=== PATIENT | female | born 1945 | race Caucasian/White ===

== ENCOUNTER → 2018-01-16 11:53 | Outpatient (CLI) | payer MEDICARE, OTHER, SELFPAY ==
[2018-01-16 11:55] LABS: Bacteria 0 SEEN /hpf (None Seen); Mucous, Urine 0 SEEN /hpf (<or=2+); Red Blood Cells-Urine 0 SEEN /hpf (0-5)
[2018-01-16 12:06] LABS: Color, Urine Yellow (Yellow); Glucose, Dipstick Normal (Normal); Ketone-Dipstick Negative (Negative); Leukocyte Esterase-Dipstick 25 /ul (Negative); Nitrite-Dipstick Negative (Negative); Occult Blood-Urine 10 /ul (Negative); Protein-Dipstick Negative (Negative); Specific Gravity, Urine 1.005 (1.002-1.030); Urine Bilirubin Dipstick Negative (Negative); Urine Clarity Clear (Clear); Urine Urobilinogen Normal (Normal)
[2018-01-16 12:15] LABS: Squamous Epithelial Cells - UA 0-5 SEEN /hpf (5-10); White Blood Cells 0-5 SEEN /hpf (0-5)
== END ==
PROVIDERS: Visit Provider Internal Medicine
DX: R31.9 Hematuria, unspecified (principal)
CPT/HCPCS: 81001

== ENCOUNTER → 2018-01-19 14:27 | Outpatient (CLI) | payer MEDICARE, OTHER, SELFPAY | PROVIDERS: Family Provider Family Medicine; PCP Family Medicine; Visit Provider Internal Medicine | DX: K64.9 Unspecified hemorrhoids (principal) | CPT/HCPCS: 82274 ==

== ENCOUNTER → 2018-01-25 16:02 | Outpatient (CLI) | payer MEDICARE, OTHER, SELFPAY ==
--- NOTE | 2018-01-25 | EMB_PTH ---
PATIENT: MARIAM HESS LOC: [facility] U#:[id number] AGE/SX: 79/F ROOM: RE01/25/[address]: Dr. Eriberto Burks MD : 1945 BED: DIS: SPEC #: [id number] RECD: 01/25/18 15:50 STATUS: DARWIN HAKEEM #: [id number] DEB: 01/25/18 00:[address]: Eriberto Burks DEPT: SURGICAL PATHOLOGY RECD BY: Deshaun Mallory ENTERED: 01/26/18 09:31 SP TYPE: ENDOM BX/C LAI DR: Dr. Paulo High, DO Tissues: Endometrium, NOS Procedures: Surgery Specimen Level IV HEADER OPERATION: Endometrial biopsy PRE-OP DIAGNOSIS: Postmenopausal bleeding TISSUE SUBMITTED: Endometrial biopsy MICROSCOPIC DIAGNOSIS Endometrial biopsy: Endometrial adenocarcinoma, endometrioid type, FIGO grade 2. SJ:belkis 01/27/18 MICROSCOPIC DESCRIPTION Slides are reviewed. GROSS DESCRIPTION Received in fixative is one container labeled with the patient's name and designated EM biopsy. The specimen consists of multiple fragments of hemorrhagic soft tissue that in aggregate measure 3 x 2.5 x 0.3 cm. The specimen is totally submitted in one cassette. / SJ:belkis 01/26/18 TC:0 CPT: 53679
[2018-01-31 15:20] LABS: HPV Reflexed? NOT INDICATED
== END ==
PROVIDERS: Family Provider Family Medicine; PCP Family Medicine; Visit Provider Obstetrics & Gynecology
DX: Z12.4 Encounter for screening for malignant neoplasm of cervix (principal); N95.0 Postmenopausal bleeding
CPT/HCPCS: 88175; 88305; G0145

== ENCOUNTER → 2018-06-30 11:46 | Outpatient (CLI) | payer MEDICARE, OTHER, SELFPAY ==
[2018-06-30 08:32] VITALS: BMI 36.8
--- NOTE | 2018-06-30 11:53 | EKG12_ITS ---
Test Reason : PRE-OP Blood Pressure : / mmHG Vent. Rate : 078 BPM Atrial Rate : 078 BPM P-R Int : 150 ms QRS Dur : 092 ms QT Int : 386 ms P-R-T Axes : 042 -27 017 degrees QTc Int : 440 ms Normal sinus rhythm Normal ECG Confirmed by ANA LAFLEUR, GABRIEL ([id number]), technical writer and editor VONDA CORBETT ([id number]) on 07/04/2018 8:45:30 AM Referred By: Ray Alegre Confirmed By:GABREIL PEREZ MD
[2018-06-30 12:41] LABS: Absolute Lymphocyte Count 2.38 X10^3/ul (0.83-4.51); Absolute Neutrophil Count 4.9 X10^3/uL (2.0-7.7); Basophil# 0.05 X10^3/uL; Basophil% 0.6 % (0-1); Eosinophil# 0.19 X10^3/uL; Eosinophils% 2.3 % (0-5); Hematocrit 43.6 % (37-47); Lymphocyte # 2.38 X10^3/ul (4.0); Lymphocyte % 29.3 % (19-41); Mean Corp Hgb Conc 32.1 g/gl (32-36); Mean Corpuscular Hgb 28.1 pg (27.0-32.0); Mean Corpuscular Volume 87.4 fL (81-99); Mean Platelet Vol. 9.5 fl (6.2-12.0); Monocyte# 0.55 X10^3/uL; Monocyte% 6.8 % (0-10); Neutrophil % 60.5 % (47-70); Platelet Count 345 K/mm3 (150-450); RBC Distribution Width CV 14.8 % (11.6-14.6); Red Blood Count 4.99 M/mm3 (4.2-5.4); White Blood Count 8.1 K/mm3 (4.4-11.0)
[2018-06-30 12:44] LABS: POSITIVE COUNT NO; POSITIVE DIFFERENTIAL NO; POSITIVE MORPHOLOGY NO
[2018-06-30 13:01] LABS: AST(SGOT) 9 U/L (15-37); Alanine Aminotransfer ALT/SGPT 15 U/L (13-56); Albumin, Serum 3.8 g/dL (3.2-5.0); Alkaline Phosphatase 30 U/L (45-117); Anion Gap 11 (5-15); BUN 16 mg/dL (7-18); Calcium,Total 8.9 mg/dL (8.5-10.1); Chloride 103 mmol/L (98-107); Creatinine, Serum 0.84 mg/dL (0.55-1.02); EST Glomerular Filtration Rate 70 mL/min (>60); Est Glom Filt Rate - Afr Amer 85 mL/min (>60); Globulin 3.9 g/dL (2.2-4.2); Glucose 87 mg/dL (74-106); Potassium 4.2 mmol/L (3.5-5.1); Protein, Total 7.7 g/dL (6.4-8.2); Sodium Level 138 mmol/L (136-145); Thyroid Stim Hormone (TSH) 1.86 uIU/mL (0.358-3.74)
== END ==
PROVIDERS: Family Provider Family Medicine; PCP Family Medicine; Referring Provider Nurse Practitioner Family; Visit Provider Nurse Practitioner Family
DX: Z01.818 Encounter for other preprocedural examination (principal); Z85.42 Personal history of malignant neoplasm of other parts of uterus; F41.9 Anxiety disorder, unspecified
CPT/HCPCS: 36415; 80053; 84443; 85025; 93005

== ENCOUNTER → 2019-11-13 10:48 | Outpatient (CLI) | payer MEDICARE, OTHER, SELFPAY ==
[2019-11-01 09:18] VITALS: BMI 37.5
[2019-11-13 11:31] LABS: ALB/GLOB Ratio 0.9 RATIO (0.9-2.4); AST(SGOT) 14 U/L (15-37); Alanine Aminotransfer ALT/SGPT 15 U/L (13-56); Albumin, Serum 3.7 g/dL (3.2-5.0); Alkaline Phosphatase 27 U/L (45-117); Anion Gap 7 (5-15); BUN 14 mg/dL (7-18); BUN/Creat Ratio 18.4 RATIO (10-20); Calcium,Total 9.2 mg/dL (8.5-10.1); Chloride 107 mmol/L (98-107); Cholesterol 183 mg/dL (200); Creatinine, Serum 0.76 mg/dL (0.55-1.02); EST Glomerular Filtration Rate 79 mL/min (>60); Est Glom Filt Rate - Afr Amer 96 mL/min (>60); Globulin 3.9 g/dL (2.2-4.2); Glucose 85 mg/dL (74-106); High Density Lipoprotein 48 mg/dL; Potassium 3.9 mmol/L (3.5-5.1); Protein, Total 7.6 g/dL (6.4-8.2); Sodium Level 141 mmol/L (136-145); Triglycerides 133 mg/dL; Very Low Density Lipoprotein 27 mg/dL (5-40)
== END ==
PROVIDERS: PCP Family Medicine; Referring Provider Family Medicine; Visit Provider Family Medicine
DX: E78.5 Hyperlipidemia, unspecified (principal)
CPT/HCPCS: 80053; 80061

== ENCOUNTER → 2021-01-06 09:59 | Outpatient (CLI) | payer MEDICARE, OTHER, SELFPAY ==
[2021-01-06 09:39] VITALS: BMI 37.5
[2021-01-06 12:43] LABS: AST(SGOT) 14 U/L (15-37); Alanine Aminotransfer ALT/SGPT 18 U/L (13-56); Albumin, Serum 3.7 g/dL (3.2-5.0); Alkaline Phosphatase 27 U/L (45-117); Anion Gap 5 (5-15); BUN 14 mg/dL (7-18); BUN/Creat Ratio 17.4 RATIO (10-20); Calcium,Total 9.1 mg/dL (8.5-10.1); Chloride 105 mmol/L (98-107); EST Glomerular Filtration Rate 74 mL/min (>60); Est Glom Filt Rate - Afr Amer 89 mL/min (>60); Globulin 3.8 g/dL (2.2-4.2); Glucose 101 mg/dL (74-106); Potassium 4.1 mmol/L (3.5-5.1); Protein, Total 7.5 g/dL (6.4-8.2); Sodium Level 139 mmol/L (136-145)
== END ==
PROVIDERS: PCP Family Medicine; Referring Provider Family Medicine; Visit Provider Family Medicine
DX: R35.0 Frequency of micturition (principal)
CPT/HCPCS: 36415; 80053

== ENCOUNTER 2021-08-27 11:42 | Emergency (ER) | payer MEDICARE, OTHER, SELFPAY ==
[2021-08-27 11:43] VITALS: BP 161/91; PULSE 96; RESP 18; TEMP 36.1; O2SAT 96; BMI 40.1
--- NOTE | 2021-08-27 12:01 | RAD_ITS ---
STUDY: X-RAY - LEFT SHOULDER REASON FOR EXAM: Female, 76 years old. Pain following a fall. TECHNIQUE: 2 view(s) of the shoulder. COMPARISON: None. FINDINGS: There is mild degenerative arthrosis of the glenohumeral articulation. There is hypertrophic osteoarthrosis of the acromioclavicular joint with inferior osseous spur formation. Normal acromion. Nondisplaced transverse fracture of the surgical neck of the proximal left humerus with extension into the greater tuberosity. Questionable fracture of the scapula at the base of the glenoid. Soft tissue swelling. Normal visualized pulmonary apex. RAD/Shoulder min 2 Views IMPRESSION: Nondisplaced transverse fracture of the surgical neck of the proximal left humerus with extension to the greater tuberosity. Findings suggestive of a subglenoid fracture of the scapula. Electronically Signed: Cosmo Austin MD at 12:24 EST ,
[2021-08-27 13:03] VITALS: BP 150/84; PULSE 95; RESP 16; O2SAT 99
[2021-08-27] MEDS: HYDROcodone Bitartrate/Apap 5/325 Tablet PO (13:07)
--- NOTE | 2021-08-27 15:55 | EX.ED.UPPERE ---
HPI History of Present Illness Chief Complaint: Upper Extremity Injury Narrative Narrative: 76-year-old female presenting with left shoulder pain after mechanical fall. She states she was going down a handicap ramp which had a bump at the end of it and she tripped falling onto her left shoulder. She denies head injury or LOC. She has pain with movement of the left shoulder. She denies left elbow or wrist pain. She is not on anticoagulation. PFSH PFS Medical History Acute hemorrhoid Anxiety Cataracts, bilateral History of breast cancer History of seizures Home Medications buspirone 15 mg tablet 15 mg PO BID #60 tab 07/14/21 [Rx Last Taken Unknown] hydrocodone-acetaminophen 1 tab PO Q6H PRN 3 Days #12 tab 08/27/21 [Rx Last Taken Unknown] Allergy/AdvReac Type Severity Reaction Status Date / Time aspirin Allergy Intermediate Hives Verified 08/27/21 11:48 amitriptyline [From Elavil] AdvReac Severe Other Verified 08/27/21 11:48 codeine AdvReac Severe other Verified 08/27/21 11:48 tetracycline AdvReac Severe other Verified 08/27/21 11:48 diazepam [From Valium] AdvReac Unknown Headache Verified 08/27/21 11:48 Family History Mother Asthma Father Kidney disease Grandfather Myocardial infarction, Onset Age: 59 Surgical History H/O total hysterectomy H/O total mastectomy of left breast History of appendectomy history of bladder tack surgery History of brain surgery History of cataract surgery History of cholecystectomy History of tonsillectomy Social History Smoking Status: Former smoker how long ago did patient quit smokin alcohol intake: never substance use type: does not use what type of physical activity do you participate in: none ROS ROS ED Constitutional Constitutional ED: Denies chills or fever(s) Eyes Eyes: Denies blurry vision or diplopia ENT ENT ED: Denies rhinorrhea or sore throat Cardiovascular Cardiovascular: Denies chest pain or palpitations Respiratory/Chest Respiratory/Chest: Denies cough or dyspnea Gastrointestinal Gastrointestinal: Denies abdominal pain, nausea or vomiting Genitourinary Genitourinary ED: Denies dysuria or hematuria Musculoskeletal Musculoskeletal: Reports other Details: Left shoulder pain ; Denies neck pain Integumentary Denies abscess or rash Neurologic Neurologic: Denies headache(s) or weakness Psychiatric Psychiatric: Denies anxiety or depression EXAM Physical Exam Const Vital Signs: 08/27/21 11:43 08/27/21 13:03 Temperature 97 F L Temperature Source Temporal Pulse Rate 96 95 Respiratory Rate 18 16 Blood Pressure 161/91 H 150/84 H Blood Pressure Mean 114 106 Pulse Ox 96 99 Oxygen Delivery Method Room Air Room Air Positive well nourished General Appearance ED: NAD HEENT normocephalic and atraumatic Eyes PERRL and EOMs intact bilaterally Resp normal respiratory effort and clear to auscultation bilaterally Cardio regular rate and regular rhythm Extremity Extremity Narrative: Tenderness palpation over the left shoulder girdle. No obvious deformity. There are some bruising and skin intact throughout the left upper extremity. Neuro oriented x3 Sensorium / Orientation: alert Psych mental status grossly normal Skin Trauma: no lacerations or abrasions MDM MDM MDM Narrative Medical decision making narrative: Patient with mechanical fall and pain to the left shoulder. Patient was given hydrocodone as she has tolerated this in the past. X-ray obtained of the left shoulder shows nondisplaced fracture of the surgical neck of the proximal humerus on my interpretation and there does appear to be some extension to the greater tuberosity. Patient placed in a sling and swath. She is given prescription for pain medication for home. She will be given follow-up with orthopedics. She is given return precautions. Impression: 1. Left shoulder fracture Radiography Diagnostic Testing: Clinical Impression(s) from Imaging Studies Shoulder X-Ray 08/27/21 12:01 IMPRESSION: Nondisplaced transverse fracture of the surgical neck of the proximal left humerus with extension to the greater tuberosity. Findings suggestive of a subglenoid fracture of the scapula. Electronically Signed: Cosmo Austin MD at 12:24 EST , Discharge Plan Triage Chief Complaint: Upper Extremity Injury ED Provider: Erwin Pedersen Dx/Rx/DC Orders Instructions: ED Fracture, Shoulder Prescriptions: New hydrocodone-acetaminophen 5-325 mg tablet 1 tab PO Q6H PRN (Reason: pain) 3 Days Qty: 12 RF: 0 No Action buspirone 15 mg tablet 15 mg PO BID Qty: 60 RF: 5 Primary Care Provider: Paulo High Referrals: Paulo High, [Primary Care Provider] - Bennett Staples MD [STAFF PHYSICIAN] - As soon as possible Disposition Disposition: Home, Self Care Discharge Date/Time: 08/27/21 13:13
== END 2021-08-27 13:13 | disposition home or self-care (01) ==
PROVIDERS: Emergency Provider Student in an Organized Health Care Education/Training Program; PCP Family Medicine; Visit Provider Student in an Organized Health Care Education/Training Program
DX: S42.92XA Fracture of left shoulder girdle, part unspecified, initial encounter for closed fracture (principal); S42.215A Unspecified nondisplaced fracture of surgical neck of left humerus, initial encounter for closed fracture; Z87.891 Personal history of nicotine dependence; W10.2XXA Fall (on)(from) incline, initial encounter; Z85.3 Personal history of malignant neoplasm of breast; Z23 Encounter for immunization
CPT/HCPCS: 73030; 90471; 99285

== ENCOUNTER → 2022-03-11 | Outpatient (CLI) | payer MEDICARE, OTHER, SELFPAY ==
--- NOTE | 2022-03-11 09:55 | BI_ITS ---
MAMMOGRAPHY - UNILATERAL SCREENING: RIGHT BREAST REASON FOR EXAM: Female, 76 years old. Routine annual screening examination (unilateral). PERTINENT HISTORY: Personal history of breast cancer. Prior left mastectomy and chemotherapy. TECHNIQUE: Digital unilateral breast shine (3D mammographic acquisition) in the CC and MLO projections. 2-D mediolateral oblique (MLO) and craniocaudad (CC) views of both breasts were obtained. CAD: Full Field Digital Mammography with Computer Added Detection was performed. COMPARISON: Comparison is made with prior outside study dated 01/23/2021. FINDINGS: Breast Composition: There are scattered areas of fibroglandular density. There are no dominant masses or suspicious calcifications. Stable right axillary lymph node. No other significant abnormalities are identified. There has been no significant change since the prior study. BI/SCREEN MAMM (CAD) W/SHINE UNI R IMPRESSION: Stable unilateral screening mammogram. Yearly follow-up mammogram recommended. (A) ASSESSMENT CATEGORY: BIRADS Category 2: Benign. A letter regarding these results will be sent to the patient by the facility within 30 days. Approximately 10% of breast cancers are not detected by mammography. A normal mammogram should not delay biopsy of a clinically suspicious abnormality. [id number] Electronically Signed: Cosmo Austin MD at 10:55 EDT ,
== END | disposition home or self-care (01) ==
LOC: OPBI 09:54
PROVIDERS: PCP Family Medicine; Referring Provider Nurse Practitioner Family; Visit Provider Nurse Practitioner Family
DX: Z12.31 Encounter for screening mammogram for malignant neoplasm of breast (principal); Z90.12 Acquired absence of left breast and nipple; Z92.21 Personal history of antineoplastic chemotherapy
CPT/HCPCS: 77063; 77067

== ENCOUNTER → 2022-07-29 | Outpatient (CLI) | payer MEDICARE, SELFPAY ==
[2022-07-29 12:23] LABS: Absolute Lymphocyte Count 1.72 X10^3/uL (0.83-4.51); Absolute Neutrophil Count 4.3 X10^3/uL (2.0-7.7); Basophil# 0.07 X10^3/uL; Eosinophil# 0.13 X10^3/uL; Eosinophils% 1.9 % (0-5); Hematocrit 43.1 % (37-47); Hemoglobin 13.5 g/dL (12.0-15.0); Lymphocyte # 1.72 X10^3/ul (0.83-4.51); Lymphocyte % 25.3 % (19-41); Mean Corp Hgb Conc 31.3 g/dL (32-36); Mean Corpuscular Hgb 27.8 pg (27.0-32.0); Mean Corpuscular Volume 88.9 fL (81-99); Mean Platelet Vol. 10.6 fl (6.2-12.0); Monocyte# 0.54 X10^3/uL; NRBC Flagged by Analyzer 0 % (0-5); Neutrophil # 4.27 X10^3/uL (2.7-7.7); Neutrophil % 62.9 % (47-70); Platelet Count 338 K/mm3 (150-450); RBC Distribution Width CV 14.9 % (11.6-14.6); RBC Distribution Width SD 49.1 fl (35.1-43.9); Red Blood Count 4.85 M/mm3 (4.2-5.4); White Blood Count 6.8 K/mm3 (4.4-11.0)
[2022-07-29 13:33] LABS: AST(SGOT) 10 U/L (15-37); Alanine Aminotransfer ALT/SGPT 12 U/L (13-56); Albumin, Serum 3.6 g/dL (3.2-5.0); Alkaline Phosphatase 29 U/L (45-117); Anion Gap 8 (5-15); BUN 14 mg/dL (7-18); BUN/Creat Ratio 18.6 RATIO (10-20); Calcium,Total 9.1 mg/dL (8.5-10.1); Chloride 109 mmol/L (98-107); Creatinine, Serum 0.75 mg/dL (0.55-1.02); EST Glomerular Filtration Rate 79 mL/min (>60); Est Glom Filt Rate - Afr Amer 96 mL/min (>60); Globulin 3.7 g/dL (2.2-4.2); Glucose 101 mg/dL (74-106); Potassium 4.1 mmol/L (3.5-5.1); Protein, Total 7.3 g/dL (6.4-8.2); Sodium Level 142 mmol/L (136-145); Thyroid Stim Hormone (TSH) 2.13 uIU/mL (0.358-3.74)
== END | disposition home or self-care (01) ==
PROVIDERS: PCP Family Medicine; Referring Provider Family Medicine; Visit Provider Family Medicine
DX: R58 Hemorrhage, not elsewhere classified (principal); Z85.42 Personal history of malignant neoplasm of other parts of uterus; F41.9 Anxiety disorder, unspecified
CPT/HCPCS: 36415; 80053; 84443; 85025

== ENCOUNTER → 2023-04-13 | Outpatient (CLI) | payer MEDICARE, SELFPAY ==
--- NOTE | 2023-04-13 12:35 | BI_ITS ---
MAMMOGRAPHY - UNILATERAL SCREENING: RIGHT BREAST REASON FOR EXAM: Female, 77 years old. Routine annual screening examination (unilateral). PERTINENT HISTORY: Personal history of breast cancer. Prior left mastectomy and chemotherapy. TECHNIQUE: Digital unilateral breast shine (3D mammographic acquisition) in the CC and MLO projections. 2-D mediolateral oblique (MLO) and craniocaudad (CC) views of both breasts were obtained. CAD: Full Field Digital Mammography with Computer Added Detection was performed. COMPARISON: Comparison is made with prior study dated March 11, 2022. FINDINGS: Breast Composition: There are scattered areas of fibroglandular density. There is a faintly seen 8 mm well-defined nodule in the deep central portion of the right breast. Sonographic correlation is recommended. Stable benign appearing right axillary lymph nodes. No other significant abnormalities are identified. BI/SCREEN MAMM (CAD) W/SHINE UNI R IMPRESSION: Faintly seen 8 mm well-defined nodule in the deep central portion of the right breast as described. Correlation with ultrasound is recommended. ASSESSMENT CATEGORY: BIRADS Category 0: Incomplete. Need additional imaging evaluation. A letter regarding these results will be sent to the patient by the facility within 30 days. Approximately 10% of breast cancers are not detected by mammography. A normal mammogram should not delay biopsy of a clinically suspicious abnormality. [id number] Electronically Signed: Cosmo Austin MD at 14:17 EDT ,
== END | disposition home or self-care (01) ==
LOC: OPBI 12:34
PROVIDERS: PCP Family Medicine; Referring Provider Family Medicine; Visit Provider Family Medicine
DX: Z12.31 Encounter for screening mammogram for malignant neoplasm of breast (principal); Z85.3 Personal history of malignant neoplasm of breast; Z90.12 Acquired absence of left breast and nipple; Z92.21 Personal history of antineoplastic chemotherapy
CPT/HCPCS: 77063; 77067

== ENCOUNTER → 2023-04-25 | Outpatient (CLI) | payer MEDICARE, SELFPAY ==
--- NOTE | 2023-04-25 10:51 | US_ITS ---
STUDY: ULTRASOUND BREAST - RIGHT REASON FOR EXAM: Female, 77 years old. Abnormal screening mammogram. TECHNIQUE: Axial and longitudinal images of the RIGHT breast were performed with a high resolution ultrasound transducer. # OF IMAGES: [id number] COMPARISON: Comparison is made with prior mammogram dated April 13, 2023. FINDINGS: RIGHT Breast: There is a 1 cm x 1 cm x 0.9 cm well-defined benign-appearing lymph node at the 7:00 position of the breast at 4 cm from the nipple. This most likely represents the mammographic abnormality. US/Breast Limited Unilateral IMPRESSION: The mammographic abnormality corresponds to a 1 cm x 1 cm x 0.9 cm well-defined benign-appearing lymph node at the 7:00 position in the breast at 4 cm from the nipple. ASSESSMENT CATEGORY: BIRADS Category 2: Benign. A letter regarding these results will be sent to the patient by the facility within 30 days. Electronically Signed: Cosmo Austin MD at 15:29 EDT ,
== END | disposition home or self-care (01) ==
LOC: OPUS 10:49
PROVIDERS: PCP Family Medicine; Referring Provider Family Medicine; Visit Provider Family Medicine
DX: R92.8 Other abnormal and inconclusive findings on diagnostic imaging of breast (principal); N63.0 Unspecified lump in unspecified breast
CPT/HCPCS: 76642

== ENCOUNTER → 2024-02-15 | Outpatient (CLI) | payer MEDICARE, SELFPAY ==
[2024-02-15 15:13] LABS: Absolute Lymphocyte Count 2.39 X10^3/uL (0.83-4.51); Absolute Neutrophil Count 6.9 X10^3/uL (2.0-7.7); Basophil# 0.08 X10^3/uL; Basophil% 0.8 % (0-1); Eosinophil# 0.13 X10^3/uL; Eosinophils% 1.3 % (0-5); Hematocrit 43.4 % (37-47); Hemoglobin 13.4 g/dL (12.0-15.0); Lymphocyte # 2.39 X10^3/ul (0.83-4.51); Lymphocyte % 23.2 % (19-41); Mean Corp Hgb Conc 30.9 g/dL (32-36); Mean Corpuscular Hgb 27.4 pg (27.0-32.0); Mean Corpuscular Volume 88.8 fL (81-99); Mean Platelet Vol. 11.2 fl (6.2-12.0); Monocyte# 0.67 X10^3/uL; Monocyte% 6.5 % (0-10); NRBC Flagged by Analyzer 0 % (0-5); Neutrophil # 6.93 X10^3/uL (2.7-7.7); Neutrophil % 67.4 % (47-70); Platelet Count 371 K/mm3 (150-450); RBC Distribution Width CV 15.8 % (11.6-14.6); RBC Distribution Width SD 51.1 fl (35.1-43.9); Red Blood Count 4.89 M/mm3 (4.2-5.4); White Blood Count 10.3 K/mm3 (4.4-11.0)
[2024-02-15 15:38] LABS: ALB/GLOB Ratio 0.9 RATIO (0.9-2.4); AST(SGOT) 13 U/L (15-37); Alanine Aminotransfer ALT/SGPT 14 U/L (13-56); Albumin, Serum 3.6 g/dL (3.2-5.0); Alkaline Phosphatase 37 U/L (45-117); Anion Gap 8 (5-15); BUN 11 mg/dL (7-18); BUN/Creat Ratio 15.2 RATIO (10-20); Calcium,Total 9.7 mg/dL (8.5-10.1); Chloride 105 mmol/L (98-107); Creatinine, Serum 0.72 mg/dL (0.55-1.02); EST Glomerular Filtration Rate 82 mL/min (>60); Est Glom Filt Rate - Afr Amer 100 mL/min (>60); Glucose 110 mg/dL (74-106); Protein, Total 7.6 g/dL (6.4-8.2); Sodium Level 139 mmol/L (136-145)
== END | disposition home or self-care (01) ==
LOC: BIMLAB 11:47
PROVIDERS: PCP Family Medicine; Referring Provider Family Medicine; Visit Provider Family Medicine
DX: Z85.3 Personal history of malignant neoplasm of breast (principal)
CPT/HCPCS: 36415; 80053; 85025

== ENCOUNTER → 2024-08-22 | Outpatient (CLI) | payer MEDICARE, SELFPAY ==
--- NOTE | 2024-08-22 12:10 | BI_ITS ---
PROCEDURE: SCREEN MAMM (CAD) W/SHINE UNI R REASON FOR EXAM: F, Age 79 y/o, personal history of breast cancer. Prior left mastectomy. COMPARISON: Prior exam(s) dating back to April 13, 2023.. TECHNIQUE: Right diagnostic digital breast tomosynthesis with 2D and 3D images. Computer aided detection. FINDINGS: There are scattered areas of fibroglandular density. Stable 1 cm well-defined nodule in the deep central portion of the right breast. This was demonstrated to be a small cyst on prior sonogram. Stable examination BI/SCREEN MAMM (CAD) W/SHINE UNI R IMPRESSION: Stable examination. BI-RADS 2: BENIGN RECOMMEND ANNUAL MAMMOGRAPHIC SCREENING. Reading Location: [facility]
== END | disposition home or self-care (01) ==
LOC: OPBI 12:09
PROVIDERS: PCP Family Medicine; Referring Provider Family Medicine; Visit Provider Family Medicine
DX: Z12.31 Encounter for screening mammogram for malignant neoplasm of breast (principal); Z85.3 Personal history of malignant neoplasm of breast
CPT/HCPCS: 77063; 77067

== ENCOUNTER → 2025-02-12 | Outpatient (CLI) | payer MEDICARE, SELFPAY ==
[2025-02-12 12:31] LABS: Hematocrit 42.9 % (37-47); Hemoglobin 13.8 g/dL (12.0-15.0); Mean Corp Hgb Conc 32.2 g/dL (32-36); Mean Corpuscular Volume 87.9 fL (81-99); Mean Platelet Vol. 10.7 fl (6.2-12.0); Platelet Count 310 K/mm3 (150-450); RBC Distribution Width CV 15.2 % (11.6-14.6); RBC Distribution Width SD 49.1 fl (35.1-43.9); Red Blood Count 4.88 M/mm3 (4.2-5.4); White Blood Count 9.2 K/mm3 (4.4-11.0)
[2025-02-12 13:05] LABS: AST(SGOT) 14 U/L (<=31); Alanine Aminotransfer ALT/SGPT 6 U/L (<=34); Albumin, Serum 4.3 g/dL (3.4-4.8); Alkaline Phosphatase 33 U/L (35-104); Anion Gap 13 (5-15); BUN 14 mg/dL (4-19); BUN/Creat Ratio 20.4 RATIO (10-20); Calcium,Total 9.9 mg/dL (7.6-11.0); Carbon Dioxide 24.4 mmol/L (21.0-32.0); Chloride 103 mmol/L (98-108); Globulin 3.1 g/dL (2.2-4.2); Glucose 94 mg/dL (70-99); Potassium 4.3 mmol/L (3.3-5.1)
== END | disposition home or self-care (01) ==
LOC: BIMLAB 11:36
PROVIDERS: PCP Family Medicine; Visit Provider Family Medicine
DX: Z85.3 Personal history of malignant neoplasm of breast (principal)
CPT/HCPCS: 36415; 80053; 85027